=== PATIENT | female | born 1985 | race Caucasian/White ===

== ENCOUNTER 2017-08-03 09:04 | Emergency (ER) | payer OTHER ==
[~2017-08-03] VITALS: Ht 147.3 cm; Wt 65.8 kg
[~2017-08-03 09:04] MED LIST: ACETAMINOPHEN-1 EAC1 PO; FLEXERIL PO; NAPROSYN500 MG PO; NOHOMEMEDICATIONS
[2017-08-03] MEDS ORDERED: LATUDA40 MG PO (09:13)
[2017-08-03] MEDS ORDERED: PRAZOSIN 1 MG CA1 M1 PO (09:13)
[2017-08-03] MEDS ORDERED: AMOXICILLIN 50500 MG PO (09:27)
[2017-08-03] MEDS ORDERED: IBUPROFEN 800800 M1 PO (09:27)
== END 2017-08-03 09:51 | disposition home or self-care (01) ==
LOC: ER 09:04
DX: K02.9 Dental caries, unspecified (principal); K04.7 Periapical abscess without sinus; F17.210 Nicotine dependence, cigarettes, uncomplicated; Z88.8 Allergy status to other drugs, medicaments and biological substances

== ENCOUNTER 2017-11-06 10:49 | Emergency (ER) | payer OTHER ==
[~2017-11-06] VITALS: Ht 147.3 cm; Wt 63.5 kg
[~2017-11-06 10:49] MED LIST changes: +AMOXICILLIN 50500 MG PO; +IBUPROFEN 800800 M1 PO; +LATUDA40 MG PO; +PRAZOSIN 1 MG CA1 M1 PO
[2017-11-06 10:53] VITALS: BP 143/101
[2017-11-06] MEDS ORDERED: REXULTI0.25 MG PO (10:55)
[2017-11-06] MEDS ORDERED: LAMICTAL100 MG PO (10:56)
[2017-11-06 11:37] LABS: URINE BILIRUBIN 1+ (Negative); URINE BLOOD NEGATIVE (Negative); URINE CLARITY CLEAR; URINE COLOR YELLOW; URINE GLUCOSE-RANDOM* NEGATIVE (Negative); URINE KETONES NEGATIVE (Negative); URINE LEUKOCYTES-REFLEX NEGATIVE (Negative); URINE NITRITE-REFLEX NEGATIVE (Negative); URINE PROTEIN (DIPSTICK) TRACE (Negative); URINE SPECIFIC GRAVITY 1.025 (1.005-1.035); URINE UROBILINOGEN 0.2 E.U./dl (0.2-1.0)
[2017-11-06 11:40] LABS: ICTOTEST (BILI CONFIRMATORY) Negative (Negative)
[2017-11-06] MEDS ORDERED: ONDANSETRON HCL4 M2 PO (11:44)
== END 2017-11-06 11:50 | disposition home or self-care (01) ==
LOC: ER 10:49
PROVIDERS: Nurse Practitioner
DX: R11.2 Nausea with vomiting, unspecified (principal); R19.7 Diarrhea, unspecified; F17.210 Nicotine dependence, cigarettes, uncomplicated; Z88.8 Allergy status to other drugs, medicaments and biological substances

== ENCOUNTER 2017-12-20 01:43 | Emergency (ER) | payer OTHER ==
[~2017-12-20] VITALS: Ht 147.3 cm; Wt 64.4 kg
[~2017-12-20 01:43] MED LIST changes: +LAMICTAL100 MG PO; +ONDANSETRON HCL4 M2 PO; +REXULTI0.25 MG PO
[2017-12-20 02:08] VITALS: BP 115/62
[2017-12-20] MEDS ORDERED: ULTRAM 50MG TAB50 MG PO (02:16)
[2017-12-20] MEDS ORDERED: BACTRIM DS TAB1 EACH PO (02:16)
== END 2017-12-20 02:53 | disposition home or self-care (01) ==
LOC: ER 01:43
DX: N61.1 Abscess of the breast and nipple (principal); F17.210 Nicotine dependence, cigarettes, uncomplicated; Z88.8 Allergy status to other drugs, medicaments and biological substances

== ENCOUNTER 2018-07-29 00:53 | Emergency (ER) | payer OTHER ==
[~2018-07-29] VITALS: Ht 147.3 cm; Wt 66.7 kg
[~2018-07-29 00:53] MED LIST changes: +BACTRIM DS TAB1 EACH PO; +ULTRAM 50MG TAB50 MG PO
[2018-07-29 01:11] LABS: URINE BILIRUBIN NEGATIVE (Negative); URINE BLOOD NEGATIVE (Negative); URINE CLARITY SL CLOUDY; URINE COLOR YELLOW; URINE GLUCOSE-RANDOM* NEGATIVE (Negative); URINE KETONES NEGATIVE (Negative); URINE LEUKOCYTES-REFLEX TRACE (Negative); URINE NITRITE-REFLEX NEGATIVE (Negative); URINE PROTEIN (DIPSTICK) NEGATIVE (Negative); URINE SPECIFIC GRAVITY 1.015 (1.005-1.035); URINE UROBILINOGEN 0.2 E.U./dl (0.2-1.0)
[2018-07-29] MEDS ORDERED: FLAGYL500 M1 PO (02:09)
[2018-07-29] MEDS ORDERED: PYRIDIUM200 MG PO (02:09)
[2018-07-29 02:14] VITALS: BP 108/64
== END 2018-07-29 02:15 | disposition home or self-care (01) ==
LOC: ER 00:53
PROVIDERS: Student in an Organized Health Care Education/Training Program
DX: N76.0 Acute vaginitis (principal); F17.210 Nicotine dependence, cigarettes, uncomplicated; Z88.8 Allergy status to other drugs, medicaments and biological substances

== ENCOUNTER 2019-02-23 01:01 | Emergency (ER) | payer OTHER ==
[~2019-02-23] VITALS: Ht 147.3 cm; Wt 79.4 kg
[~2019-02-23 01:01] MED LIST changes: +FLAGYL500 M1 PO; +PYRIDIUM200 MG PO
[2019-02-23 01:35] LABS: URINE BILIRUBIN NEGATIVE (Negative); URINE BLOOD NEGATIVE (Negative); URINE CLARITY CLEAR; URINE COLOR YELLOW; URINE GLUCOSE-RANDOM* NEGATIVE (Negative); URINE KETONES NEGATIVE (Negative); URINE LEUKOCYTES-REFLEX NEGATIVE (Negative); URINE NITRITE-REFLEX NEGATIVE (Negative); URINE PROTEIN (DIPSTICK) NEGATIVE (Negative); URINE SPECIFIC GRAVITY <= 1.005 (1.005-1.035); URINE UROBILINOGEN 0.2 E.U./dl (0.2-1.0)
[2019-02-23 01:48] VITALS: BP 140/79
== END 2019-02-23 01:50 | disposition short-term general hospital (02) ==
LOC: ER 01:01
PROVIDERS: Emergency Medicine
DX: O62.8 Other abnormalities of forces of labor (principal); O99.333 Smoking (tobacco) complicating pregnancy, third trimester; F17.210 Nicotine dependence, cigarettes, uncomplicated; Z88.8 Allergy status to other drugs, medicaments and biological substances; Z3A.28 28 weeks gestation of pregnancy